=== PATIENT | female | born 2000 | race Caucasian/White ===

== ENCOUNTER 2023-12-09 18:59 | Inpatient (IN) | payer OTHER, MEDICAID ==
[2023-12-09] MEDS ORDERED: Promethazine HCl 25 MG/ML VIAL IM PRN (19:16)
[2023-12-09] MEDS ORDERED: Ondansetron PF 4 MG/2 ML Vial IVP PRN (19:16)
[2023-12-09] MEDS ORDERED: Lidocaine 1% (PF) 30 ML VIAL SC PRN (19:16)
[2023-12-09] MEDS ORDERED: hydrALAZINE 20 MG/ML VIAL SLOW IVP PRN (19:16)
[2023-12-09] MEDS ORDERED: Ibuprofen 800 MG TAB PO PRN (19:17)
[2023-12-09] MEDS ORDERED: Misoprostol 200 MCG TAB PR PRN (19:17)
[2023-12-09] MEDS ORDERED: Carboprost 250 MCG/ML AMP IM PRN (19:17)
[2023-12-09] MEDS ORDERED: Tranexamic Acid 1,000 MG/10 ML VIAL IVP PRN (19:17)
[2023-12-09] MEDS ORDERED: Methylergonovine 0.2 MG/ML VIAL IM PRN (19:17)
[2023-12-09 19:30] VITALS: BMI 29.7
[2023-12-09] MEDS ORDERED: Oxytocin 30 units/NS 500 ML 500 ML IV SCH ×2 (19:30)
[2023-12-09 20:15] LABS: Hematocrit 29.5 % (34.9-44.5); Mean Corpuscular HGB CONC 33.9 g/dL (32.0-36.0); Mean Corpuscular Hemoglobin 29.8 pg (27.0-33.0); Mean Corpuscular Volume 87.8 fl (81.6-98.3); Mean Platelet Volume 10.7 fl (7.4-10.4); Platelet Count 273 10x3/uL (150-450); RBC Distribution Width 13.1 % (11.5-14.5); Red Blood Cell (RBC) Count 3.36 10x6/uL (3.90-5.03); White Blood Cell (WBC) Count 10.7 10x3/uL (3.5-10.5)
[2023-12-09] MEDS: Lactated Ringer's 1,000 ML IV SCH (20:26)
[2023-12-09] MEDS: Misoprostol 100 MCG TAB VAG SCH (20:26)
[2023-12-09 20:45] LABS: HBSAg Index 0.29 S/CO (0-0.99); Hep B Surf Ag - L&D Non-Reactive S/CO (NonReactive)
[2023-12-09 20:46] LABS: Syphilis Antibody Nonreactive (Nonreactive); Syphilis Antibody Index 0.04 S/CO (<1.00 Non-Reactive)
[2023-12-10] MEDS: fentaNYL 50 mcg/mL 1 mL Vial SLOW IVP SCH ×2 (06:37→12:45)
[2023-12-10 12:51] LABS: Amphetamine Not Detected (NotDetected); Barbiturates Screen Not Detected (NotDetected); Benzodiazepine Screen Not Detected (NotDetected); Cocaine Metabolite Screen Not Detected (NotDetected); Methadone Not Detected (NotDetected); Methamphetamine Not Detected (NotDetected); Opiate Screen Not Detected (NotDetected); Oxycodone Screen Not Detected (NotDetected); Phencyclidine (PCP) Not Detected (NotDetected); THC/Cannabinoid Screen Not Detected (NotDetected); Tricyclic Screen Not Detected (NotDetected)
[2023-12-10] MEDS: fentaNYL/Ropivacaine Epidural 100 ML ONE (14:04)
[2023-12-10] MEDS ORDERED: ePHEDrine Sulfate 50 MG/10 ML VIAL SLOW IVP PRN (14:40)
[2023-12-10] MEDS ORDERED: Promethazine HCl 25 MG/ML VIAL IM PRN (14:40)
[2023-12-10] MEDS ORDERED: Naloxone HCl 0.4 mg/ml Vial IVP PRN ×2 (14:40)
[2023-12-10] MEDS ORDERED: Lactated Ringer's 500 ML IV PRN (14:40)
[2023-12-10] MEDS ORDERED: Moisturizing Cream (Eucerin) 113 GM JAR TOP PRN (14:40)
[2023-12-10] MEDS ORDERED: Ondansetron PF 4 MG/2 ML Vial IVP PRN (14:40)
[2023-12-10] MEDS ORDERED: diphenhydrAMINE 50 MG/ML VIAL IVP PRN (14:40)
[2023-12-10] MEDS ORDERED: Acetaminophen 325 MG TAB PO PRN (14:40)
[2023-12-10] MEDS ORDERED: fentaNYL 2 mcg/Ropivacaine 0.2% Epidural 100 ML CADD EPIDURAL SCH (14:45)
[2023-12-10] MEDS ORDERED: Communication Order-Pharmacy FS SCH (14:45)
[2023-12-10] MEDS ORDERED: Bupivacaine 0.25% HCL 30 ML VIAL ONE (14:53)
[2023-12-10] MEDS ORDERED: ePHEDrine Sulfate 50 MG/10 ML VIAL ONE (14:53)
[2023-12-10] MEDS: Oxytocin 30 units/NS 500 ML 500 ML IV SCH (15:50)
[2023-12-10] MEDS ORDERED: Preparation H Ointment 28 GM TUBE PR PRN (21:39)
[2023-12-10] MEDS ORDERED: Boostrix 0.5 ML (Tdap) VIAL (>/=7 yrs of age) IM ONE (21:39)
[2023-12-10] MEDS ORDERED: Benzocaine-Menthol 82.5 ML CAN TOP PRN (21:39)
[2023-12-10] MEDS ORDERED: Lanolin Ointment 7 GM TUBE TOP PRN (21:39)
[2023-12-10] MEDS ORDERED: hydrALAZINE 20 MG/ML VIAL SLOW IVP PRN (21:39)
[2023-12-10] MEDS ORDERED: Milk Of Magnesia 30 ML UDCUP PO PRN (21:39)
[2023-12-10] MEDS ORDERED: Bisacodyl 10 MG SUPP PR PRN (21:39)
[2023-12-10] MEDS: CEFAZOLIN 2 GM VIAL ONE (22:25)
[2023-12-10] MEDS: Ibuprofen 800 MG TAB PO SCH (22:25)
[2023-12-10] MEDS: Azithromycin 500 MG VIAL ONE (22:25)
[2023-12-10 22:27] LABS: Analyzer IN Cardio CS NICU; Critical Notified By: CP.PH; Critical Notified Whom: NUR.SCI5; RapidComm Collect By NUR.SCI5; pH (Cord, venous) 7.324 (7.250-7.350)
[2023-12-10 22:29] LABS: Analyzer IN Cardio CS NICU; Critical Notified By: CP.PH; Critical Notified Whom: NUR.SCI5; RapidComm Collect By NUR.SCI5
[2023-12-11 05:12] LABS: #Basophils 0.05 10x3/uL (0.0-0.2); #Eosinphils 0.05 10x3/uL (0.0-0.5); #Monocytes 1.54 10x3/uL (0.0-1.1); #Neutrophils 15.73 10x3/uL (1.5-8.4); %Basophils 0.3 % (0.0-2.0); %Eosinophils 0.3 % (0.0-6.0); %Lymphocytes 12.1 % (18.0-47.0); %Monocytes 7.7 % (0.0-10.0); Hematocrit 30.5 % (34.9-44.5); Hemoglobin 9.8 g/dL (12.0-15.5); Mean Corpuscular HGB CONC 32.1 g/dL (32.0-36.0); Mean Corpuscular Hemoglobin 28.8 pg (27.0-33.0); Mean Corpuscular Volume 89.7 fl (81.6-98.3); Mean Platelet Volume 11.1 fl (7.4-10.4); Platelet Count 221 10x3/uL (150-450); RBC Distribution Width 13.2 % (11.5-14.5); White Blood Cell (WBC) Count 19.9 10x3/uL (3.5-10.5)
[2023-12-11] MEDS: Ferrous Sulfate 325 MG TAB PO SCH (13:52)
[2023-12-11] MEDS: Docusate 100 MG CAP PO SCH (13:52)
[2023-12-12 08:20] VITALS: TEMP 96.9
[2023-12-12 08:45] VITALS: BP 104/73
== END 2023-12-12 12:00 | disposition home or self-care (01) | DRG 807 ==
LOC: CSHLD 18:59 → CSHPP 12-11 01:30
PROVIDERS: ADMIT Obstetrics & Gynecology; ATTEND Obstetrics & Gynecology
PROC: 10E0XZZ Delivery of Products of Conception, External Approach (ICD-10-PCS; principal; 2023-12-10)
PROC: 0KQM0ZZ Repair Perineum Muscle, Open Approach (ICD-10-PCS; 2023-12-10)
PROC: 10907ZC Drainage of Amniotic Fluid, Therapeutic from Products of Conception, Via Natural or Artificial Opening (ICD-10-PCS; 2023-12-10)
PROC: 3E0DXGC Introduction of Other Therapeutic Substance into Mouth and Pharynx, External Approach (ICD-10-PCS; 2023-12-10)
DX: O99.02 Anemia complicating childbirth (principal); Z37.0 Single live birth; Z3A.39 39 weeks gestation of pregnancy; D50.9 Iron deficiency anemia, unspecified; O70.1 Second degree perineal laceration during delivery
CPT/HCPCS: 36415; 51702; 76815; 80306; 82805; 85025; 85027; 86780; 86850; 86900; 86901; 87340; J0665; J2590; J3010; J7120